=== PATIENT | male | born 1950 | race Caucasian/White ===

== ENCOUNTER 2017-03-21 16:18 | Inpatient (IN) | payer MEDICARE, OTHER ==
[2017-03-21] VITALS (10 sets, daily range): BP systolic 101–144; BP diastolic 55–81; PULSE 47–100; RESP 16–18; TEMP 97.3–98.2; O2SAT 93–98
[2017-03-21] MEDS ORDERED: DILTIAZEM HCL 25 MG/5 ML VIAL IVP ONE (17:00)
[2017-03-21] MEDS ORDERED: DILTIAZEM INJ 125 MG in SODIUM CHLORIDE 0.9% INJ 100 ML IV SCH (17:00)
[2017-03-21] MEDS ORDERED: ATOR20TA15 PO (17:05)
[2017-03-21] MEDS ORDERED: AMIO200T PO (17:05)
[2017-03-21] MEDS ORDERED: ZOLP5TAB3 PO (17:05)
[2017-03-21] MEDS ORDERED: LISI-519 PO (17:05)
[2017-03-21] MEDS ORDERED: METF1000 PO (17:05)
[2017-03-21] MEDS ORDERED: FURO40TA PO (17:05)
[2017-03-21] MEDS ORDERED: XARE20TA PO (17:05)
[2017-03-21 19:09] LABS: AUTOMATED NEUTROPHIL # 6.3 TH/MM3 (1.8-7.7); BASOPHIL # 0.1 TH/MM3 (0-0.2); BASOPHIL % 0.8 % (0.0-2.0); EOSINOPHIL # 0.1 TH/MM3 (0-0.4); EOSINOPHIL % 1.2 % (0.0-4.0); HEMATOCRIT 43.7 % (39.0-51.0); HEMO FLAGS DIFF FINAL; LYMPH % 32.2 % (9.0-44.0); LYMPHOCYTE # 3.5 TH/MM3 (1.0-4.8); MEAN CELL VOLUME 93.6 FL (80.0-100.0); MEAN CORPUSCULAR HEMOGLOBIN 31.4 PG (27.0-34.0); MEAN CORPUSCULAR HGB CONC 33.5 % (32.0-36.0); MONO % 6.8 % (0.0-8.0); PLATELET COUNT 258 TH/MM3 (150-450); RED BLOOD COUNT 4.66 MIL/MM3 (4.50-5.90); RED CELL DISTRIBUTION WIDTH 13.4 % (11.6-17.2); WHITE BLOOD COUNT 10.8 TH/MM3 (4.0-11.0)
[2017-03-21 19:17] LABS: APTT (PATIENT) 28.7 SEC (24.3-30.1); PROTHROMBIN TIME - PATIENT 11.5 SEC (9.8-11.6)
[2017-03-21 19:34] LABS: ALKALINE PHOSPHATASE 80 U/L (45-117); ALT (GPT) 25 U/L (12-78); ANION GAP 9 MEQ/L (5-15); AST (GOT) 15 U/L (15-37); BICARBONATE 27.4 MEQ/L (21.0-32.0); BLOOD UREA NITROGEN 19 MG/DL (7-18); CHLORIDE 103 MEQ/L (98-107); GLOMERULAR FILTRATION RATE 72 ML/MIN (>89); POTASSIUM 3.4 MEQ/L (3.5-5.1); SODIUM (NA) 139 MEQ/L (136-145); TOTAL BILIRUBIN ADULT 0.3 MG/DL (0.2-1.0)
[2017-03-22] VITALS (13 sets, daily range): BP systolic 104–122; BP diastolic 57–76; PULSE 51–63; RESP 18; TEMP 97.3–97.8; O2SAT 93–96
[2017-03-22] MEDS ORDERED: AMIODARONE 200 MG TAB PO SCH (09:45)
[2017-03-22] MEDS ORDERED: FUROSEMIDE 40 MG TAB PO SCH (09:45)
[2017-03-22] MEDS ORDERED: metFORMIN HCL 500 MG TAB PO SCH (09:45)
[2017-03-22] MEDS ORDERED: LISINOPRIL 5 MG TAB PO SCH (09:45)
[2017-03-22] MEDS ORDERED: ZOLPIDEM TARTRATE 5 MG TAB PO PRN (09:45)
[2017-03-22] MEDS ORDERED: PILL SPLITTER OTHER PRN (10:15)
--- NOTE | 2017-03-22 12:29 | HHI.PR ---
Subjective Remarks feeling better Objective Vital Signs Date Time Temp Pulse Resp B/P Pulse Ox O2 Delivery O2 Flow Rate FiO2 03/22/17 08:00 97.7 58 18 121/66 96 03/22/17 07:00 55 03/22/17 06:00 55 03/22/17 05:00 60 03/22/17 04:00 60 03/22/17 03:00 51 03/22/17 03:00 97.8 57 18 104/57 93 03/22/17 02:06 63 03/22/17 01:00 57 03/22/17 00:00 56 03/21/17 23:00 64 03/21/17 23:00 98.2 63 18 101/55 93 03/21/17 22:00 62 03/21/17 21:00 68 03/21/17 20:00 74 03/21/17 19:00 72 03/21/17 19:00 97.8 47 18 144/76 96 03/21/17 18:37 68 03/21/17 18:22 88 03/21/17 18:15 115/81 03/21/17 17:07 97.3 79 16 121/70 98 03/21/17 17:00 100 I/O 03/21/17 03/21/17 03/21/17 03/22/17 03/22/17 03/22/17 06:59 14:59 22:59 06:59 14:59 22:59 Intake Total 286 ml Balance 286 ml Intake Oral 240 ml IV Total 46 ml # Voids 1 2 Result Diagram: 03/21/17190003/21/171900 Imaging Alert, fully oriented Lungs: ventilated Heart: S1, S2 regular Abdomen: soft, no mass Ext: no edema Current Medications Medications (Trade) Dose Ordered Sig/Nilam Route Start Time Stop Time Status Last Admin (Cardizem Inj/NS Inj) 125 ml @ 0 mls/hr TITRATE IV 03/21/17 17:00 03/21/17 17:49 (Cordarone) 200 mg DAILY PO 03/22/17 09:45 03/22/17 10:50 (Lipitor) 20 mg HS PO 03/22/17 21:00 (Lasix) 60 mg DAILY PO 03/22/17 09:45 03/22/17 10:50 (Prinivil) 5 mg DAILY PO 03/22/17 09:45 03/22/17 10:49 (Glucophage) 1,000 mg BIDPC PO 03/22/17 09:45 03/22/17 10:50 (Xarelto) 20 mg DAILY PO 03/22/17 18:00 (Ambien) 5 mg HS PRN PO 03/22/17 09:45 (Pill Splitter) 1 ea UNSCH PRN OTHER 03/22/17 10:15 Assessment and Plan Problem List: (1) Atrial fibrillation Status: Acute Plan: Back into sinus rhythm. Doing well. On anticoagulation Cardizem PO added Can be DH OP ablation scheduled (2) Palpitations Status: Acute Plan: Doing better Theodore Mock MD March 22, 2017 12:29
[2017-03-22] MEDS ORDERED: DILTIAZEM-CD 180 MG CAP ER PO SCH (12:30)
[2017-03-22] MEDS ORDERED: CARD180C5 PO (12:31)
--- NOTE | 2017-03-22 17:25 | EKG ---
Date Performed: 03/21/2017 Time Performed: 18:07:26 PTAGE: 66 years EKG: Atrial flutter. Poor R wave progression - probable normal variant Inferior ST elevation, CO NSIDER ACUTE INFARCT, most likely secondary to flutter waves Abnormal ECG NO PREVIOUS TRACING DOCTOR: Braulio Lainez Interpretating Date/Time 03/22/2017 17:23:45
[2017-03-22] MEDS ORDERED: RIVAROXABAN 20 MG TAB PO SCH (18:00)
[2017-03-22] MEDS ORDERED: ATORVASTATIN 20 MG TAB PO SCH (21:00)
== END 2017-03-22 13:44 | disposition home or self-care (01) | DRG 310 ==
LOC: HCIN 16:18
PROVIDERS: ADMIT Internal Medicine Interventional Cardiology; ATTEND Internal Medicine Interventional Cardiology
DX: I48.91 Unspecified atrial fibrillation (principal)
CPT/HCPCS: 80053; 85025; 85610; 85730; 93005

== ENCOUNTER 2017-04-23 05:53 | Day surgery (SDC) | payer MEDICARE, OTHER ==
[~2017-04-23] VITALS: Ht 177.8 cm; Wt 87.0 kg
[2017-04-23] VITALS (13 sets, daily range): BP systolic 122–143; BP diastolic 76–85; PULSE 63–109; RESP 18–20; TEMP 97.7–98.1; O2SAT 96–99
[~2017-04-23 05:53] MED LIST: AMIO200T PO; ATOR20TA15 PO; CARD180C5 PO; FURO40TA PO; LISI-519 PO; METF1000 PO; XARE20TA PO; ZOLP5TAB3 PO
[2017-04-23] MEDS ORDERED: METOPROLOL TARTRATE 25 MG TAB PO PRN (06:30)
[2017-04-23] MEDS ORDERED: CHLORHEXIDINE GLUCONATE 2 % 1 PACK (2 CLOTHS) TOPICAL PRN (06:30)
[2017-04-23] MEDS ORDERED: INSULIN HUMAN REGULAR 1,000 UNITS/10 ML VIAL SQ PRN (06:30)
[2017-04-23] MEDS ORDERED: LORazepam 1 MG TAB SL SCH (06:30)
[2017-04-23] MEDS ORDERED: SODIUM CHLORID 0.9% 500 ML IV PRN (06:30)
[2017-04-23] MEDS ORDERED: SODIUM CHLORID 0.9% 500 ML INJ 500 ML IV SCH (06:30)
[2017-04-23] MEDS ORDERED: POVIDONE IODINE 5% (ANTISEPSIS KIT) 4 APPLICATIONS EACH NARE PRN (06:30)
[2017-04-23] MEDS ORDERED: LACTATED RINGER'S 1000 ML IV PRN (06:30)
[2017-04-23 07:11] LABS: BASOPHIL % 0.3 % (0.0-2.0); EOSINOPHIL # 0.1 TH/MM3 (0-0.4); EOSINOPHIL % 1.5 % (0.0-4.0); HEMATOCRIT 44.8 % (39.0-51.0); HEMO FLAGS DIFF FINAL; LYMPH % 27.2 % (9.0-44.0); LYMPHOCYTE # 2.5 TH/MM3 (1.0-4.8); MEAN CELL VOLUME 90.7 FL (80.0-100.0); MEAN CORPUSCULAR HEMOGLOBIN 30.8 PG (27.0-34.0); MEAN CORPUSCULAR HGB CONC 33.9 % (32.0-36.0); MONO % 6.9 % (0.0-8.0); NEUT % 64.1 % (16.0-70.0); PLATELET COUNT 296 TH/MM3 (150-450); RED BLOOD COUNT 4.94 MIL/MM3 (4.50-5.90); WHITE BLOOD COUNT 9.4 TH/MM3 (4.0-11.0)
[2017-04-23 07:16] LABS: APTT (PATIENT) 29.3 SEC (24.3-30.1); PROTHROMBIN TIME - PATIENT 11.3 SEC (9.8-11.6)
[2017-04-23] MEDS ORDERED: LEVOFLOXACIN 500 MG PREMIX INJ 100 ML IV ONE (07:30)
[2017-04-23] MEDS ORDERED: ISOPROTERENOL HCL 1 MG/5 ML AMP ONE (07:31)
[2017-04-23 07:32] LABS: BICARBONATE 29.7 MEQ/L (21.0-32.0); POTASSIUM 3.5 MEQ/L (3.5-5.1)
[2017-04-23] MEDS ORDERED: MIDAZOLAM HCL 2 MG/2 ML VIAL ONE (07:32)
[2017-04-23] MEDS ORDERED: fentaNYL CITRATE 250 MCG/5 ML AMP ONE (07:32)
[2017-04-23] MEDS ORDERED: HEPARIN-D5W INJ 250 ML ONE (07:32)
[2017-04-23] MEDS ORDERED: HEPARIN SODIUM - IV 10,000 UNITS/10 ML VIAL ONE ×2 (07:33→08:54)
[2017-04-23] MEDS ORDERED: PROTAMINE SULFATE 50 MG/5 ML VIAL ONE (07:33)
[2017-04-23] MEDS ORDERED: ASPI81CH CHEW (07:53)
[2017-04-23] MEDS ORDERED: DULA10IN SQ (07:53)
[2017-04-23] MEDS ORDERED: FUROSEMIDE 40 MG/4 ML VIAL ONE (09:40)
--- NOTE | 2017-04-23 09:43 | CATHPROC ---
[employer] HIS Report Study Information Study Number Admission Scheduled Start Study Start [id number] 04/23/2017 04/23/2017 Apr 23 2017 6:44AM Referring Institution Admit Source Facility Department 1 Other [facility] - Call Center Agent Physician and Clinical Staff Initial Theodore Vigil Electrician Constructor Supervisor Indio Cisse,RT(R) Electrician Constructor Supervisor Nikkie Gama RCIS Other Chan Ayala,RN Other Anesthesia, CREATIVE LEAD Recorder Ijeoma Carrington,BSRN Scrub Marcus Carrintgon,RT(R) TECH2 Procedures Performed Procedure Ablation Procedure Equipment Time Pharmacoepidemiologist Description Size Mfg Part Number Used/Scraped NEEDLE, TRANSSEPTAL NRG 98 06:47 [facility] [id number] Used C1 [employer]/ EP 06:47 KIT, TRANSDUCER / AFIB [id number] Used PACER [id number] CATHETER, TACTICATH ABLAT BUNDLE 06:47 [facility] Used 65 BUNDLE *[id number]- BUNDLE [id number] CATHETER, FR7 OPTIMA SPIRAL 06:47 [facility] FR7 *[id number]- Used BUNDLE BUNDLE [id number] 06:47 [facility] CATHETER, JSN, QUAD BUNDLE FR 5 *[id number]- Used BUNDLE [id number] 06:47 [facility] CATHETER, JSN, QUAD BUNDLE FR 5 *[id number]- Used BUNDLE [id number] SET, COOL POINT TUBING 06:47 [facility]UND[facility] *[id number]- Used BUNDLE BUNDLE SHEATH, FR8.5 STEERABLE SM 06:47 [facility] 71CM [id number] Used 71CM BUNDLE COVER, TRANSDUCER CABLE 06:47 [employer] 612-113 Used ACUNAV COVER, TRANSDUCER CABLE 08:27 [employer] 612-113 Used ACUNAV 06:47 CORDIS/PACER SHEATH, FR10 MASOUD 11CM FR 10 [id number] Used 06:47 CORDIS/PACER SHEATH, FR9 MASOUD 11CM FR 9 [id number] Used [id number] 06:47 [employer] PACK, CCL CUSTOM * Used *[id number] 06:47 MEDLINE PACER BERNARDO, LIMB * 5320 *[id number] Used [id number] 06:47 [employer] MEDICAL SHEATH, FR4.5 PRELUDE 11CM FR 4.5 Used [id number] 06:47 NAMIC TUBING, HIGH PRESSURE 48" 48" Used *[id number] 06:47 NAMIC TUBING, HIGH PRESSURE 48" 48" Used *[id number] 06:47 [employer] BLANKET,WARM AIR CCL * Used *[id number] 06:47 [facility] MEDICAL ELECTRODE KIT, TREMAINE X SURFACE * [id number] Used 06:47 [facility] MEDICAL SHEATH, EPS, FR6 FAST CATH FR [address] [id number] Used 06:47 [facility] MEDICAL SHEATH, EPS, FR7 FAST CATH FR [id number] Used 06:47 [facility] MEDICAL SHEATH, EPS, FR8 FAST CATH FR 8 [id number] Used [facility] PAD, ELECTROSURGICAL 06:47 * [id number] *[id number] Used SURGICAL GROUNDING (BLUE) History: Current Medications Medication Dosage/Unit Route Frequency Last Date/Time Taken ASA Statins (any) Glucophage XARELTO History: Allergies Allergy Reaction NKDA History: Risk Factors Hypertension Dyslipidemia Previous [place] Previous Heart Failure Yes Yes Yes Yes Prior Valve Prior PCI Prior CABG Surgery No Yes No Cerebrovascular Peripheral Artery Chronic Lung On Dialysis Diabetes Diabetes Therapy Disease Disease Disease No No No Yes Yes Oral History: Risk Factors Selection Items Diabetes Previous WA (>7 days) Previous Cardiovascular Treatment Chronic Lung Disease on therapy History: Symptoms/Diagnosis Selection Items AMARAL SOB History: CV Disease Selection Items Known CAD [place] History: Arrhythmias Selection Items Atrial fibrillation History: Other Disease Selection Items CAD Cancer COPD HTN Labs Hgb (g/dl) Hct (%) RBC (MIL/MM3) WBC (l/cumm) Platelets (thousands) 11.60-17.00 35.00-51.00 4.00-5.90 4.00-11.00 150.00-450.00 15.2 44.8 4.9 9.4 296 Glucose (mg/dl) BUN (mg/dl) Creatinine (mg/dl) BUN:Creatinine (1:x) 74.00-106.00 7.00-18.00 0.50-1.30 10.00-20.00 114 23 0.9 25.6 Na (meq/l) K (meq/l) Cl (meq/l) CO2 (mmol/L) Ca (mg/dl) 136.00-145.00 3.50-5.10 98.00-107.00 21.00-32.00 8.50-10.10 140 3.5 102 29.7 9.1 INR (PTT:PT) 0.90-1.10 1 Medication Medication Total Dose (Bolus/Oral) Medication Total Dosage/Unit 1% XYLOCAINE 40 mL HEPARIN 46262 units LASIX 40 mg PROTAMINE 40 mg Medications (Bolus/Oral) Medication Time Given Dosage/Unit Administered By Reason 1% XYLOCAINE 04/23/2017 8:23:06 AM 20 mL Theodore Mock For pain 20 mL 1% XYLOCAINE given in lab by Theodore Mock in Left Groin via Subcutaneous. Ordered by [place] Mock. Reason: For pain. 1% XYLOCAINE 04/23/2017 8:27:39 AM 20 mL Theodore Mock For pain 20 mL 1% XYLOCAINE given in lab by Theodore Mock in Right Groin via Subcutaneous. Ordered by Bhavin Mock. Reason: For pain. HEPARIN 04/23/2017 8:37:06 AM 58744 units Anesthesia, CREATIVE LEAD As per physicians v erbal order 04982 units HEPARIN given in lab by Anesthesia, CREATIVE LEAD in Right Hand via Peripheral IV. Ordered by Theodore Andrews. Reason: As per physicians verbal order. HEPARIN 04/23/2017 8:53:40 AM 2000 units Anesthesia, CREATIVE LEAD As per physicians v erbal order 2000 units HEPARIN given in lab by Anesthesia, CREATIVE LEAD in Right Hand via Peripheral IV. Ordered by Theodore Mock. Reason: As per physicians verbal order. HEPARIN 04/23/2017 9:07:36 AM 2000 units Anesthesia, CREATIVE LEAD As per physicians v erbal order 2000 units HEPARIN given in lab by Anesthesia, CREATIVE LEAD in Right Hand via Peripheral IV. Ordered by Theodore Mock. Reason: As per physicians verbal order. LASIX 04/23/2017 9:39:49 AM 40 mg Anesthesia, CREATIVE LEAD As per physicians verb al order 40 mg LASIX given in lab by Anesthesia, CREATIVE LEAD in Right Hand via Peripheral IV. Ordered by Iris Mock Reason: As per physicians verbal order. PROTAMINE 04/23/2017 9:40:11 AM 40 mg Anesthesia, CREATIVE LEAD As per physicians ve rbal order 40 mg PROTAMINE given in lab by Anesthesia, CREATIVE LEAD in Right Hand via Peripheral IV. Ordered by Bhavin Mock. Reason: As per physicians verbal order. Medication (Drip) Medication Time Given Dosage/Unit Concentration/Unit Diluent (ml) Solution HEPARIN DRIP 04/23/2017 8:54:29 AM 1000 units/hr 16631 units 250 D5W 1000 units/hr HEPARIN DRIP given in lab by Anesthesia, CREATIVE LEAD in Right Hand via Peripheral IV. Pump/Dri p Flow = 10 ml/hr [place] [address] units in 250 ml. Ordered by Theodore Mock. Reason: As per physicians verbal or joelle. ISUPREL 04/23/2017 9:20:52 AM 20 mcg/min 1 mg 250 NaCl .9 20 mcg/min ISUPREL given in lab by Anesthesia, CREATIVE LEAD in Right Hand via Peripheral IV. Pump/Drip Flow = 300 ml/hr using NaCl .9 with a concentration of 1 mg in 250 ml. Ordered by Theodore Mock. Reason: As per physicians verbal order. Initial Case Assessment Cardiovascular HR NIBP 85 148/81 Edema Present Skin color Skin None Normal Warm Dry Neurological State Oriented to time-place- Alert Moves all extremities person Respiration - General Respiration Rate SpO2 (%) (B/min) 18 96 Chronological Log Time Study Chronological Log 7:14:00 Patient Name, D.O.B, / Armband Verified By R.N. 7:15:00 Patient arrived via Bed. Anesthesia at bedside. Assumes care of patient. See anesthesia flow sheet for ALL vital signs a nd medications given in 7:15:10 case. 7:38:35 Patient has been NPO for More than 6Hrs. 7:38:37 Skin Breakdown-none per pt 7:38:44 Patient Warmer Placed on the Table. 7:38:45 Disposable Defibrillator Pads Placed On Patient. 7:38:46 Suzette Prominences Protected 7:38:51 Table restraints applied according to hospital policy 7:40:00 Verbal Stimulation=2 Physical Stimulation=2 Airway=2 Respiration=2 TOTAL=10. (0=absent, 1=l imited, 2=present) Assessment: Initial Case, HR=85 BPM, JWEO=209/81 mmhg, Edema=None, Color=Normal, Skin = Warm, D ry 7:53:55 Neurological: State=Alert, Ox3, FOFANA Respiration: Resp=18 B/min, SpO2=96 % 8:11:46 MD paged 8:11:49 MD responded 8:15:00 Immediate Presedation assesment performed by physician. 8:15:30 MD arrived. Time Out. Correct patient, procedure, procedure equipment, site and side verified with physicia n present. Time 8:16:00 concurred by MD, individual staff and CREATIVE LEAD. Time Out #2 - Consents verified, patient in correct position, all results are labled and displa yed, safety precautions 8:16:30 taken, antibiotics administered. Time out concurred by MD, individual staff and CREATIVE LEAD in procedu re 8:16:40 Case Start 8:20:00 IRAM begun. 8:22:00 IRAM completed 20 mL 1% XYLOCAINE given in lab by Theodore Mock in Left Groin via Subcutaneous. Ordered by Theodore Nicholas. 8:23:06 Reason: For pain. 8:23:50 Vascular access was obtained in the Fem Vein (left). 8:23:58 Vascular access was obtained in the Fem Vein (left). 8:23:59 Vascular access was obtained in the Fem Vein (left). 8:24:10 Vascular access was obtained in the Fem Art (left). 8:24:30 A SHEATH, FR4.5 PRELUDE 11CM FR 4.5 was advanced into the Fem Art (left) using the Percutane ous technique. 8:24:46 A SHEATH, EPS, FR6 FAST CATH FR 6 was advanced into the Fem Vein (left) using the Percutaneo us technique. 8:24:59 A SHEATH, EPS, FR7 FAST CATH FR 7 was advanced into the Fem Vein (left) using the Percutaneo us technique. 8:25:12 A SHEATH, FR10 MASOUD 11CM FR 10 was advanced into the Fem Vein (left) using the Percutaneou s technique. 20 mL 1% XYLOCAINE given in lab by Theodore Mock in Right Groin via Subcutaneous. Ordered by Theodore Nicholas. 8:27:39 Reason: For pain. 8:28:03 Vascular access was obtained in the Fem Vein (right). 8:28:09 A SHEATH, EPS, FR8 FAST CATH FR 8 was advanced into the Fem Vein (right) using the Percutane ous technique. A CATHETER, JSN, QUAD BUNDLE FR 5 was advanced vis Fem Vein (left) and placed in the CS. Placeme nt was visually 8:30:17 confirmed under fluoroscopy. A CATHETER, JSN, QUAD BUNDLE FR 5 was advanced vis Fem Vein (left) and placed in the HIS. Placem ent was 8:30:46 visually confirmed under fluoroscopy. A SHEATH, FR8.5 STEERABLE SM 71CM BUNDLE 71CM was exchanged in the Fem Vein (right). This was ne cessary in 8:32:39 order for catheter support. 8:36:27 [place] needle inserted into Agilis sheath. 27766 units HEPARIN given in lab by Anesthesia, CREATIVE LEAD in Right Hand via Peripheral IV. Ordered by Theodore Mock. 8:37:06 Reason: As per physicians verbal order. A CATHETER, FR7 OPTIMA SPIRAL BUNDLE FR7 was advanced to the right atrium and passed through the septal wall 8:37:40 to the left atrium. 8:40:06 Mapping in progress. 8:46:00 Mapping complete. 8:47:50 Activated Clotting Time Drawn 8:50:32 Catheter was removed A CATHETER, TACTICATH ABLAT 65 BUNDLE was advanced vis Fem Vein (right) and placed in the LA. Pl acement was 8:50:46 visually confirmed under fluoroscopy. 8:51:29 ACT (Normal Range 90-180) = 314 8:52:00 Ablation in progress of pulmonary veins. 2000 units HEPARIN given in lab by Anesthesia, CREATIVE LEAD in Right Hand via Peripheral IV. Ordered by Theodore Mock. 8:53:40 Reason: As per physicians verbal order. 1000 units/hr HEPARIN DRIP given in lab by Anesthesia, CREATIVE LEAD in Right Hand via Peripheral IV. Pum p/Drip Flow = 10 8:54:29 ml/hr [place] [address] units in 250 ml. Ordered by Theodore Mock. [place] son: As per physicians verbal order. 9:01:25 Activated Clotting Time Drawn 9:06:49 ACT (Normal Range 90-180) = 338 2000 units HEPARIN given in lab by Anesthesia, CREATIVE LEAD in Right Hand via Peripheral IV. Ordered by Theodore Mock. 9:07:36 Reason: As per physicians verbal order. 9:16:45 Tacticath ablation catheter removed. [place] Spiral catheter inserted. 9:17:31 Activated Clotting Time Drawn 9:19:33 [place] catheter removed. Ablation catheter reinserted. 9:20:10 Ablation continues. 9:20:32 Ablation completed. 20 mcg/min ISUPREL given in lab by Anesthesia, CREATIVE LEAD in Right Hand via Peripheral IV. Pump/Drip F low = 300 ml/hr 9:20:52 using NaCl .9 with a concentration of 1 mg in 250 ml. Ordered by Theodore Mock. Reason: As p er physicians verbal order. 9:22:34 ACT (Normal Range 90-180) = 378 9:30:49 Stop Isuprel gtt. 9:31:00 Heparin gtt off 9:33:24 Catheters removed 9:34:28 Sheaths to be pulled in PACU 9:35:10 Ablation procedure performed: AFIB. 9:35:23 EP Procedure was performed. 40 mg LASIX given in lab by Anesthesia, CREATIVE LEAD in Right Hand via Peripheral IV. Ordered by Theodore Mock. Reason: As 9:39:49 per physicians verbal order. 40 mg PROTAMINE given in lab by Anesthesia, CREATIVE LEAD in Right Hand via Peripheral IV. Ordered by Theodore Rivas. 9:40:11 Reason: As per physicians verbal order. 9:42:00 PACU called. Spoke to Thuy 9:50:00 Activated Clotting Time Drawn 9:53:00 ACT (Normal Range 90-180) = 171 9:54:37 Case End 9:54:54 [facility] to [facility] and transported to PACU in stable condition. End Study - Contrast Media Used In Study Contrast Total Opened (mL) Total Used (mL) Total Wasted (mL) Unspecified 0 0 0 End Study - Maximum Contrast Load Max Contrast Load (mL) 478.8 End Study - Radiation Exposure Fluoro Time (minutes) 0.7 End Study - Patient Disposition Complications Transferred To Interventional Outcome No Telemetry Bed successful
--- NOTE | 2017-04-23 09:53 | PD.CARD ---
Atrial Fibrillation Ablation PROCEDURE DATE: Apr 23, 2017 PROCEDURES PERFORMED: 1. Electrophysiology study on Isuprel infusion 2. CS cannulation 3. 3-D mapping 4. Transseptal approach 5. Right and left heart catheterization 6. Intracardiac echo 7. Radiofrequency ablation of atrial fibrillation 8. Pulmonary vein isolation 9. Posterior wall ablation 10. Mitral line creation 11. Anterior wall ablation 12. Repeat electrophysiology study on isuprel infusion. INDICATIONS FOR THE PROCEDURE Mr. Fernandez is a 66-year-old male with atrial fibrillation very symptomatic, multiple episodes, on multiple medications, on anticoagulation admitted for electrophysiology study and ablation. The risks, the nature and the benefits of the procedure were clearly stated to him. The risks include pneumothorax, cardiac perforation, stroke, need for open heart surgery and even . The patient understood and agreed to proceed. DESCRIPTION OF THE PROCEDURE IN DETAIL As written informed consent was obtained prior to esophageal echocardiogram, the patient was kept on the table where he was prepped and draped in the usual sterile fashion. Conscious sedation was initiated and maintained throughout the procedure by the anesthesiologist. Once sedation was verified, the right and left inguinal areas were anesthetized with 2% Xylocaine. Using modified Seldinger technique, the left femoral vein was cannulated on three occasions, three guidewires were advanced. Over the wire a 6, 7 and a 10-Sudanese Hemaquet were advanced. Then the left femoral artery was cannulated on one occasion, one guidewire was advanced. Over the wire a 4-Sudanese Hemaquet was advanced. Then the right femoral vein was cannulated on one occasion, one guidewire was advanced. Over the wire a 8-Sudanese Hemaquet was advanced. Then under fluoroscopic guidance through the 6 and 7-Sudanese Hemaquet, two 5-Sudanese Jerry curved quadripolar electrophysiology catheters were advanced and placed around the His as well as coronary sinus. Basic interval was measured. The patient was in sinus rhythm. Through the 10-Sudanese Hemaquet, a Cordis [place] AcuNav intracardiac echo catheter was advanced and placed at the right atrium. Multiple view was obtained. There is pericardial effusion, pulmonary vein was seen, atrial septal was visualized. Then the 8-Sudanese Hemaquet in the right femoral vein was exchanged for Agilis transseptal sheath that was placed all the way to the superior vena cava. Through the sheath a [place] needle was advanced, then the sheath, the dilator and the needle were progressed until foci engaged. Once engaged, the needle was advanced. RF was delivered for 2 seconds. I was able to cross into the left atrium. Once the needle crossed, the dilator was advanced. Once the dilator crossed, the sheath was advanced. Once the sheath crossed, the dilator and the needle were removed. At this point I did flood the system and fluid movement was seen in the left atrium the indicates the sheath is in good position. The patient already received 10,000 units of heparin. The goal is to keep an ACT around 350 during ablation. Then through the sheath a [place] 20 pulse circumferential catheter was advanced. Using Fonix endocardial solution mapping system, a 3-dimensional configuration of the left atrium was obtained. Points were taken at the left superior and inferior veins, right superior and inferior veins, mitral valve, and appendages. Then through the sheath a [place] TactiCath 65cm 3.5mm irrigated tipped mapping and radiofrequency ablation catheter was advanced. Esophageal probe was placed temperature monitoring during ablation. When it increased to 0.5 degrees Celsius above baseline, I moved to a different area of the atrium. First I did isolate the left superior and inferior vein. I did make a [place] around the veins. Posterior was ablated. A mitral valve line was created.- Then the right superior and inferior veins were isolated. I did remap the atrium. There was no signal into the vein, pacing from the vein showed no conduction to the atrium. Isuprel infusion was initiated at 20 mcg for over 10 minutes. No tachyarrhythmia was induced, post Isuprel no tachyarrhythmia was induced. At that point the procedure was complete. All catheters were removed , atrial septal sheath was exchanged for 9-Sudanese Hemaquet, intracardiac echo showed no pericardial effusion. There is still good flow in the pulmonary vein. The patient is going to be transferred to the recovery room. No incident report. The patient tolerated the procedure. Blood loss was minimal. FINDINGS 1. Electrocardiogram: At baseline the patient was in sinus, post procedure electrocardiogram was unchanged. 2. Basic interval: Base cycle length was around 840. AH at 106 and HV at 54 milliseconds. 3. Tachyarrhythmia: Atrial fibrillation was mapped and ablated. The ablation was successful. CONCLUSION Successful electrophysiology study, mapping, radiofrequency ablation of atrial fibrillation, pulmonary vein isolation, posterior ablation, mitral line creation , roof line creation, repeat electrophysiology on isuprel; infusion. COMMENTS AND RECOMMENDATIONS The patient is going to be transferred to the telemetry unit. Will be observed and when stable can be discharged home. Theodore Mock MD Apr 23, 2017 09:53
[2017-04-23] MEDS ORDERED: BACITRACIN OINT 0.9 GM PKT TOP ONE (10:00)
[2017-04-23] MEDS ORDERED: METOCLOPRAMIDE HCL 10 MG/2 ML VIAL IV PRN (10:00)
[2017-04-23] MEDS ORDERED: oxyCODONE/ACETAMINOPHEN 5 MG/325 MG TAB PO PRN ×2 (10:00)
[2017-04-23] MEDS ORDERED: ONDANSETRON HCL 4 MG/2 ML VIAL IV PRN (10:00)
[2017-04-23] MEDS ORDERED: ATROPINE SULFATE 1 MG/ML VIAL IV PRN (10:00)
[2017-04-23] MEDS ORDERED: ZOLPIDEM TARTRATE 5 MG TAB PO PRN (10:00)
[2017-04-23] MEDS ORDERED: LORazepam 2 MG/ML VIAL IV PRN (10:00)
[2017-04-23] MEDS ORDERED: LIDOCAINE HCL 1% 50 ML VIAL INFIL PRN (10:00)
[2017-04-23] MEDS ORDERED: SODIUM CHLOR 0.9% 250 ML INJ 250 ML IV PRN (10:00)
[2017-04-23] MEDS ORDERED: DO NOT ADM ANY ANTICOAGULANT DRUGS PRN (10:15)
[2017-04-23] MEDS ORDERED: PROPOFOL 200 MG/20 ML AMP IV ONE (14:20)
[2017-04-23] MEDS: metFORMIN HCL 500 MG TAB PO SCH (17:54)
[2017-04-23] MEDS: RIVAROXABAN 20 MG TAB PO SCH (17:55)
[2017-04-23] MEDS ORDERED: ATORVASTATIN 20 MG TAB PO SCH (21:00)
[2017-04-24] VITALS (10 sets, daily range): BP systolic 119–132; BP diastolic 71–78; PULSE 76–80; RESP 20; TEMP 98–98.1; O2SAT 96–99
--- NOTE | 2017-04-24 07:36 | EKG ---
Date Performed: 04/23/2017 Time Performed: 10:30:21 PTAGE: 66 years EKG: Sinus rhythm PROLONGED QT INTERVAL ABNORMAL ECG PREVIOUS TRACING : 04/23/2017 07.02 DOCTOR: Theodore Mock Interpretating Date/Time 04/24/2017 07:36:02
[2017-04-24 07:39] LABS: APTT (PATIENT) 33.1 SEC (24.3-30.1); INTERNATIONAL NORMALIZED RATIO 1.2 RATIO; PROTHROMBIN TIME - PATIENT 13.9 SEC (9.8-11.6)
--- NOTE | 2017-04-24 07:43 | EKG ---
Date Performed: 04/23/2017 Time Performed: 07:02:32 PTAGE: 66 years EKG: Sinus rhythm with borderline 1st degree A-V block Prolonged QT interval Borderline ECG NO PREVIOUS TRACING DOCTOR: Theodore Mock Interpretating Date/Time 04/24/2017 07:41:29
--- NOTE | 2017-04-24 08:09 | PD.CARD.PN ---
Subjective Subjective Remarks Feels okay. Objective Medications Current Medications Medications (Trade) Dose Ordered Sig/Nilam Route Start Time Stop Time Status Last Admin (NS 500 ml Inj) 500 ml @ 30 mls/hr [id number] IV 04/23/17 06:30 (Percocet 5-325 Mg) 1 tab Q4H PRN PO 04/23/17 10:00 (Percocet 5-325 Mg) 2 tab Q4H PRN PO 04/23/17 10:00 (Ativan Inj) 0.5 mg UNSCH PRN IV 04/23/17 10:00 04/24/17 09:59 Atropine Sulfate 0.5 mg 0.5 mg UNSCH PRN IV 04/23/17 10:00 (NS 250 ml Inj) 250 ml @ 500 mls/hr ONCE PRN IV 04/23/17 10:00 04/24/17 09:59 (Reglan Inj) 10 mg Q4H PRN IV 04/23/17 10:00 (Zofran Inj) 4 mg Q4H PRN IV 04/23/17 10:00 (Xylocaine 1% Inj (50 ml)) 10 ml UNSCH PRN INFIL 04/23/17 10:00 04/24/17 09:59 (Lipitor) 20 mg HS PO 04/23/17 21:00 04/23/17 21:01 (Lasix) 40 mg DAILY PO 04/24/17 09:00 (Prinivil) 10 mg DAILY PO 04/24/17 09:00 (Glucophage) 1,000 mg BIDPC PO 04/23/17 18:00 04/23/17 17:54 (Xarelto) 20 mg DAILY PO 04/23/17 18:00 04/23/17 17:55 (Ambien) 5 mg HS PRN PO 04/23/17 10:00 Patient Own Medication PT OWN MED: Dulaglut... Q7D SQ 04/29/17 11:00 Future Hold Miscellaneous Information ALL NURSING DEPARTME... UNSCH PRN .XX 04/23/17 10:15 04/24/17 10:14 Vital Signs / I&O Vital Signs Date Time Temp Pulse Resp B/P Pulse Ox O2 Delivery O2 Flow Rate FiO2 04/24/17 06:00 80 04/24/17 05:00 77 04/24/17 04:00 76 04/24/17 03:00 98.0 78 20 119/71 96 04/24/17 03:00 78 04/24/17 02:00 77 04/24/17 01:00 78 04/24/17 00:00 80 04/23/17 23:00 98.1 80 18 122/85 96 04/23/17 23:00 78 04/23/17 22:00 80 04/23/17 21:00 84 04/23/17 20:00 82 04/23/17 19:00 82 04/23/17 19:00 97.9 83 20 134/77 99 04/23/17 18:00 109 04/23/17 17:00 80 04/23/17 16:00 81 04/23/17 15:00 97.7 81 20 130/76 98 04/23/17 15:00 80 04/23/17 14:07 79 04/23/17 13:00 78 04/23/17 12:00 97.7 77 18 133/76 99 04/23/17 12:00 70 04/23/17 11:10 75 20 128/71 95 Nasal Cannula 2 04/23/17 11:00 75 20 121/66 94 Nasal Cannula 2 04/23/17 10:45 75 20 136/70 97 Nasal Cannula 2 04/23/17 10:30 75 20 135/70 97 Nasal Cannula 2 04/23/17 10:15 75 20 137/75 97 Nasal Cannula 2 04/23/17 10:08 97.5 75 20 138/74 96 Nasal Cannula 2 I/O 04/23/17 04/23/17 04/23/17 04/24/17 04/24/17 04/24/17 07:00 15:00 23:00 07:00 15:00 23:00 Intake Total 730 ml 720 ml 720 ml Output Total 305 ml 1700 ml 750 ml Balance 425 ml -980 ml -30 ml Intake Oral 720 ml 720 ml IV Total 30 ml Other 700 ml Output Urine Total 300 ml 1700 ml 750 ml Estimated Blood Loss 5 ml Physical Exam GENERAL: Well-nourished, well-developed patient. SKIN: Warm and dry. Groin sites soft with no bruising or bleeding. HEAD: Normocephalic. EYES: No scleral icterus. No injection or drainage. NECK: Supple, trachea midline. No JVD or lymphadenopathy. CARDIOVASCULAR: Regular rate and rhythm without murmurs, gallops, or rubs. RESPIRATORY: Breath sounds equal bilaterally. No accessory muscle use. GASTROINTESTINAL: Abdomen soft, non-tender, nondistended. EXTREMITIES: No cyanosis, or edema. NEUROLOGICAL: Awake, alert, and oriented x 3. Non-focal. Laboratory Laboratory Tests Test 04/24/17 06:39 Prothrombin Time 13.9 SEC Prothromb Time International 1.2 RATIO Ratio Activated Partial 33.1 SEC Thromboplast Time Assessment and Plan Problem List: (1) Atrial fibrillation Assessment and Plan: NSR on telemetry status post ablation. Anticoagulated on Xarelto. (2) S/P ablation of atrial fibrillation Assessment and Plan: Groin sites soft, benign. Discharge home, follow-up with Dr. Mock in 3 weeks per my discussion with him. Discussed Condition With D/W RN, patient, Dr. Mock Problem Qualifiers (1) Atrial fibrillation: Qualified Code: I48.0 - Paroxysmal atrial fibrillation Ary Cordoba Apr 24, 2017 08:09
[2017-04-24] MEDS ORDERED: FUROSEMIDE 40 MG TAB PO SCH (09:00)
[2017-04-24] MEDS ORDERED: LISINOPRIL 5 MG TAB PO SCH (09:00)
[2017-04-24] MEDS: metFORMIN HCL 500 MG TAB PO SCH (09:12)
[2017-04-24] MEDS: RIVAROXABAN 20 MG TAB PO SCH (09:13)
--- NOTE | 2017-04-24 17:20 | EKG ---
Date Performed: 04/24/2017 Time Performed: 06:04:46 PTAGE: 66 years EKG: Sinus rhythm with borderline 1st degree A-V block Prolonged QT interval Borderline ECG PREVIOUS TRACING : 04/23/2017 10.30 Compared to prior tracing no significant change DOCTOR: Shay Nguyen Interpretating Date/Time 04/24/2017 17:19:02
--- NOTE | 2017-04-25 22:51 | ECHRPT ---
Indication: CONCLUSIONS Adequate left ventricuilar sytolic function. EF 60% Mild left atrial enlargement. No clot seen at left atrium, nor left atrium appendage. Trivial mitral regurgitation BP: / HR: Rhythm: Technical Quality: Medications Complications Proc. Components FINDINGS LEFT VENTRICLE Normal left ventricular size and wall thickness. The left ventricular systolic function is normal wi th an estimated ejection fraction in the range of 60%. Left ventricular diastolic function parameters are normal. RIGHT VENTRICLE Normal right ventricular size and systolic function. LEFT ATRIUM The left atrial size is mildly enlarge. RIGHT ATRIUM The right atrial size is normal. ATRIAL APPENDAGES No clot seen. Adequate emptying ATRIAL SEPTUM Normal atrial septal thickness without atrial level shunting by limited color doppler interrogation. AORTA The aortic root and proximal ascending aorta are normal in size on limited imaging. MITRAL VALVE Structurally normal mitral valve. No mitral valve stenosis or regurgitation. AORTIC VALVE Trileaflet aortic valve. Mildly sclerotic and calcified with adequate opening VESSELS The inferior vena cava is normal in size. PULMONARY VALVE The pulmonary valve is not well visualized. PERICADIUM No pericardial effusion. Theodore Mock MD (Electronically Signed) Final Date:25 April 2017 22:51
[2017-04-29] MEDS ORDERED: PATIENT OWN MEDICATION SQ SCH (11:00)
== END 2017-04-24 10:11 | disposition home or self-care (01) ==
LOC: HDOC 05:53 → HDIC 05:54 → HCIS 11:43 → HDOC 04-24 10:11
PROVIDERS: ATTEND Internal Medicine Interventional Cardiology
DX: I48.0 Paroxysmal atrial fibrillation (principal); I45.81 Long QT syndrome; R94.31 Abnormal electrocardiogram [ECG] [EKG]
CPT/HCPCS: 80048; 85002; 85025; 85610; 85730; 86850; 86900; 86901; 93005; 93312; 93320; 93325; 93613; 93623; 93656; 93662; C1730; C1731; C1732; C1759; C1766; C2630; J1644; J1940; J1956; J2250; J2720; J3010

== ENCOUNTER 2017-12-24 06:58 | Day surgery (SDC) | payer MEDICARE, OTHER ==
[2017-12-24] VITALS (10 sets, daily range): BP systolic 120–143; BP diastolic 70–89; PULSE 76–92; RESP 18; TEMP 97.7–98.1; O2SAT 95–98
[~2017-12-24] VITALS: Ht 177.8 cm; Wt 86.0 kg
[~2017-12-24 06:58] MED LIST changes: +ASPI-516 CHEW; -CARD180C5 PO; +DULA10IN SQ
[2017-12-24 07:50] LABS: AUTOMATED NEUTROPHIL # 6.6 TH/MM3 (1.8-7.7); BASOPHIL % 0.3 % (0.0-2.0); EOSINOPHIL # 0.2 TH/MM3 (0-0.4); EOSINOPHIL % 1.9 % (0.0-4.0); HEMATOCRIT 41.1 % (39.0-51.0); HEMOGLOBIN 13.7 GM/DL (13.0-17.0); LYMPHOCYTE # 2.6 TH/MM3 (1.0-4.8); MEAN CELL VOLUME 93.3 FL (80.0-100.0); MEAN CORPUSCULAR HEMOGLOBIN 31.2 PG (27.0-34.0); MEAN CORPUSCULAR HGB CONC 33.5 % (32.0-36.0); MEAN PLATELET VOLUME 7.7 FL (7.0-11.0); MONO % 5.9 % (0.0-8.0); MONOCYTE # 0.6 TH/MM3 (0-0.9); NEUT % 65.9 % (16.0-70.0); PLATELET COUNT 344 TH/MM3 (150-450); RED CELL DISTRIBUTION WIDTH 14.6 % (11.6-17.2)
[2017-12-24 08:00] LABS: PROTHROMBIN TIME - PATIENT 10.5 SEC (9.8-11.6)
[2017-12-24 08:09] LABS: BICARBONATE 29.2 MEQ/L (21.0-32.0); CALCIUM 8.9 MG/DL (8.5-10.1); CREATININE 0.76 MG/DL (0.60-1.30)
[2017-12-24] MEDS ORDERED: LORazepam 1 MG TAB SL SCH (08:15)
[2017-12-24] MEDS ORDERED: CHLORHEXIDINE GLUCONATE 2 % 1 PACK (2 CLOTHS) TOPICAL PRN (08:15)
[2017-12-24] MEDS ORDERED: INSULIN HUMAN REGULAR 1,000 UNITS/10 ML VIAL SQ PRN (08:15)
[2017-12-24] MEDS ORDERED: SODIUM CHLORID 0.9% 500 ML IV PRN (08:15)
[2017-12-24] MEDS ORDERED: POVIDONE IODINE 5% (ANTISEPSIS KIT) 4 APPLICATIONS EACH NARE PRN (08:15)
[2017-12-24] MEDS ORDERED: LACTATED RINGER'S 1000 ML IV PRN (08:15)
[2017-12-24] MEDS ORDERED: METOPROLOL TARTRATE 25 MG TAB PO PRN (08:15)
[2017-12-24] MEDS: SODIUM CHLORID 0.9% 500 ML INJ 500 ML IV SCH (08:15)
[2017-12-24] MEDS ORDERED: HEPARIN SODIUM - IV 10,000 UNITS/10 ML VIAL ONE ×2 (09:31→10:19)
[2017-12-24] MEDS ORDERED: HEPARIN-D5W 25,000 U/250 ML 250 ML ONE (10:18)
[2017-12-24] MEDS ORDERED: PROTAMINE SULFATE 50 MG/5 ML VIAL ONE (10:19)
[2017-12-24] MEDS ORDERED: LEVOFLOXACIN 500 MG PREMIX INJ 100 ML IV ONE (10:59)
[2017-12-24] MEDS ORDERED: GLYCOPYRROLATE 1 MG/5 ML SYRINGE IV PUSH ONE (12:00)
[2017-12-24] MEDS ORDERED: LABETALOL HCL 100 MG/20 ML VIAL IV ONE (12:00)
[2017-12-24] MEDS ORDERED: DEXAMETHASONE SOD PHOS 4 MG/ML VIAL IV ONE (12:00)
[2017-12-24] MEDS ORDERED: LIDOCAINE HCL 1% PF 5 ML SYRINGE OTHER ONE (12:00)
[2017-12-24] MEDS ORDERED: PROPOFOL 200 MG/20 ML AMP IV ONE (12:00)
[2017-12-24] MEDS ORDERED: ROCURONIUM INJ 50 MG/5 ML SYRINGE IV PUSH ONE (12:00)
[2017-12-24] MEDS ORDERED: ONDANSETRON HCL 4 MG/2 ML VIAL IV ONE (12:00)
[2017-12-24] MEDS ORDERED: NEOSTIGMINE 5 MG/5 ML SYRINGE IV PUSH ONE (12:00)
--- NOTE | 2017-12-24 12:27 | PD.CARD ---
Atrial Fibrillation Ablation PROCEDURE DATE: Dec 24, 2017 PROCEDURES PERFORMED: 1. Electrophysiology study on Isuprel infusion 2. CS cannulation 3. 3-D mapping 4. Transseptal approach 5. Right and left heart catheterization 6. Intracardiac echo 7. Radiofrequency ablation of atrial fibrillation 8. Pulmonary vein isolation 9. Posterior wall ablation 10. Mitral line creation 11. Anterior and posterior ablation INDICATIONS FOR THE PROCEDURE Mr. Fernandez is a 67-year-old male with atrial fibrillation, symptomatic, previous ablation, referred for electrophysiology study and ablation. The patient is symptomatic and on anticoagulation. The risks, the nature and the benefits of the procedure were clearly stated to him. The risks include pneumothorax, cardiac perforation, stroke, need for open heart surgery and even . The patient understood and agreed to proceed. DESCRIPTION OF THE PROCEDURE IN DETAIL After written informed consent was obtained prior to esophageal echocardiogram, the patient was kept on the table where he was prepped and draped in the usual sterile fashion. Conscious sedation was initiated and maintained throughout the procedure by the anesthesiologist. Once sedation was verified, the right and left inguinal areas were anesthetized with 2% Xylocaine. Using modified Seldinger technique, the left femoral vein was cannulated on three occasions, three guidewires were advanced. Over the wire a 6, 7 and a 10-Anguillan Hemaquet were advanced. Then the left femoral artery was cannulated on one occasion, one guidewire was advanced. Over the wire a 4-Anguillan Hemaquet was advanced. Then the right femoral vein was cannulated on one occasion, one guidewire was advanced. Over the wire a 8-Anguillan Hemaquet was advanced. Then under fluoroscopic guidance through the 6 and 7-Anguillan Hemaquet, two 5-Anguillan Jerry curved quadripolar electrophysiology catheters were advanced and placed around the His as well as coronary sinus. Basic interval was measured. The patient was in sinus rhythm. Through the 10-Anguillan Hemaquet, a Cordis Clinton AcuNav intracardiac echo catheter was advanced and placed at the right atrium. Multiple view was obtained. There was no pericardial effusion, pulmonary vein was seen, atrial septal was visualized. Then the 8-Anguillan Hemaquet in the right femoral vein was exchanged for Agilis transseptal sheath that was placed all the way to the superior vena cava. Through the sheath a Palma needle was advanced, then the sheath, the dilator and the needle were progressed until foci engaged. Once engaged, the needle was advanced. RF was delivered for 2 seconds. I was able to cross into the left atrium. Once the needle crossed, the dilator was advanced. Once the dilator crossed, the sheath was advanced. Once the sheath crossed, the dilator and the needle were removed. At this point I did flood the system and fluid movement was seen in the left atrium the indicates the sheath is in good position. The patient already received 10,000 units of heparin. The goal is to keep an ACT around 350 during ablation. Then through the sheath a [place] 20 pulse circumferential catheter was advanced. Using [employer]map[employer] endocardial solution mapping system, a two-dimensional configuration of the left atrium was obtained. Points were taken at the left superior and inferior veins, right superior and inferior veins, mitral valve, and appendages. Then through the sheath a [employer]. Keenan TactiCath 65cm 3.5mm irrigated tipped mapping and radiofrequency ablation catheter was advanced. Esophageal probe was placed temperature monitoring during ablation. When it increased to 0.5 degrees Celsius above baseline, I moved to a different area of the atrium. First I did isolate the left superior and inferior vein. I did make a big [place] around the veins. Posterior was ablated. Then a new mitral line was created. Then the right superior and inferior veins were isolated. I did remap the atrium. The circumferential catheter again into the vein. There was no signal into the vein, pacing from the vein showed no conduction to the atrium. Isuprel infusion was initiated at 20 mcg for over [id number] minutes. No tachyarrhythmia was induced, post Isuprel no tachyarrhythmia was induced. At that point the procedure was complete. All catheters were removed, atrial septal sheath was exchanged for 9-Anguillan Hemaquet, intracardiac echo showed no pericardial effusion. There is still good flow in the pulmonary vein. The patient is going to be transferred to the recovery room. No incident report. The patient tolerated the procedure. Blood loss was minimal. FINDINGS 1. Electrocardiogram: At baseline the patient was in atrial fibrillation, post procedure the patient was in sinus rhythm. 2. Basic interval: Base cycle length was around 890 ms. AH at 86 and HV at 48 milliseconds. 3. Tachyarrhythmia: Atrial fibrillation was mapped and ablated. The ablation was successful. CONCLUSION Successful electrophysiology study, mapping, radiofrequency ablation of atrial fibrillation, pulmonary vein isolation, posterior ablation, mitral line creation.. COMMENTS AND RECOMMENDATIONS The patient is going to be transferred to the telemetry unit. Will be observed and when stable can be discharged home. Theodore Mock MD Dec 24, 2017 12:27
[2017-12-24] MEDS ORDERED: SODIUM CHLOR 0.9% 250 ML INJ 250 ML IV PRN (12:30)
[2017-12-24] MEDS ORDERED: METOCLOPRAMIDE HCL 10 MG/2 ML VIAL IV PUSH PRN (12:30)
[2017-12-24] MEDS ORDERED: ZOLPIDEM TARTRATE 5 MG TAB PO PRN (12:30)
[2017-12-24] MEDS ORDERED: LORazepam 2 MG/ML VIAL IV PUSH PRN (12:30)
[2017-12-24] MEDS ORDERED: ATROPINE SULFATE 1 MG/ML VIAL IV PUSH PRN (12:30)
[2017-12-24] MEDS ORDERED: LIDOCAINE HCL 1% 50 ML VIAL INFIL PRN (12:30)
[2017-12-24] MEDS ORDERED: ONDANSETRON HCL 4 MG/2 ML VIAL IV PUSH PRN (12:30)
--- NOTE | 2017-12-24 12:48 | CATHPROC ---
Patient Name: ERIC ORTA Study #: [id number] Initial MD: Theodore Mock Date of : 1950 Study Date: 12/24/2017 Cardiac Catheterization Report 12/24/2017 12:48:18 PM Financial #: [id number] 1 of 10 Patient Name: ERIC ORTA Study #: [id number] Initial MD: Theodore Mock Date of : 1950 Study Date: 12/24/2017 Entire Case Report Patient Information Patient Name ERIC ROTA Date of 1950 Age 67 years Financial # [id number] Gender M AlternateID Lab Number 2 Room Number DC07 Height (in) 66.0 Height (cm) 167.6 BSA 1.96 Weight (lbs) 189.2 Weight (kg) 86.0 Patient Address/Phone Number Home Address [facility] Home Phone Number [address] [facility] [place] [address] Study Information Study Number Admission Scheduled Start Study Start [id number] Dec 24 2017 6:58AM 12/24/2017 Dec 24 2017 9:31AM [place] [facility] Electrophysiology Study Admit Source Facility Department Other [facility] - Freight Car Inspector Physician and Clinical Staff Initial Theodore Vigil Logistics Lead [place], Rosa,LEGAL RECORDS CLERK TECH2 Logistics Lead Natan, Nikkie,LEGAL RECORDS CLERK Other Anesthesia, CONSTRUCTION LINEMAN Recorder Shane AMAYA, Julius Recorder Mahi Franklin RN Scrub Indio Cisse,RT(R) Procedures Performed Procedure Location (Site) Vessel Name Ablation Procedure ICE CATHETER INSERT RA Atruim RF Ablation LT. ATRIUM LT. ATRIUM 12/24/2017 12:48:18 PM Financial #: [id number] 2 of 10 Patient Name: ERIC ORTA Study #: [id number] Initial MD: Theodore Mock Date of : 1950 Study Date: 12/24/2017 Equipment Time Patient Service Representative Description Size Mfg Part Number Used/Scraped NEEDLE, TRANSSEPTAL NR 98 [id number] 09:34 [facility] Used C1 *[id number] [employer]/ EP [id number] 09:34 KIT, TRANSDUCER / AFIB Used PACER *[id number]- CATHETER, TACTICATH ABLAT BUNDLE 09:34 [facility] Used 65 BUNDLE *[id number]- BUNDLE [id number] CATHETER, FR7 OPTIMA SPIRAL 09:34 [facility] FR7 *[id number]- Used BUNDLE BUNDLE [id number] 09:34 [facility] CATHETER, JSN, QUAD BUNDLE FR 5 *[id number]- Used BUNDLE [id number] 09:34 [facility] CATHETER, JSN, QUAD BUNDLE FR 5 *[id number]- Used BUNDLE [id number] SET, COOL POINT TUBING 09:34 [facility] *[id number]- Used BUNDLE BUNDLE SHEATH, FR8.5 STEERABLE SM 09:34 [facility] 71CM [id number] Used 71CM BUNDLE COVER, TRANSDUCER CABLE 612-113 09:34 [employer] Used ACUNAV *[id number] 09:34 CORDIS/PACER SHEATH, FR9 MASOUD 11CM FR 9 [id number] Used [id number] 09:34 [employer] PACK, CCL CUSTOM * Used *[id number] 09:34 [employer] PACER BERNARDO, LIMB * 2530 *[id number] Used [id number] 09:34 [employer] MEDICAL SHEATH, FR4.5 PRELUDE 11CM FR 4.5 Used 035ACT [id number] 09:34 NAMIC TUBING, HIGH PRESSURE 48" 48" Used *[id number] 09:34 NAMIC TUBING, HIGH PRESSURE 48" 48" Used *[id number] 09:34 [employer] BL[employer]ET,WARM AIR CCL * Used *[id number] 09:34 [facility] MEDICAL ELECTRODE KIT, TREMAINE X SURFACE * Used *[id number] 025613 09:34 [facility] MEDICAL SHEATH, EPS, FR6 FAST CATH FR 6 Used *[id number] 09:34 [facility] MEDICAL SHEATH, EPS, FR7 FAST CATH FR 7 [id number] Used [id number] 09:34 [facility] [employer] SHEATH, EPS, FR8 FAST CATH FR 8 Used *[id number] CATHETER, ACUNAV FR10 ICE [id number] 11:11 CYNTHIA FR 10 Used (CYNTHIA) *[id number] [employer] 11:13 SHEATH, FR10 TURUMO FR 10 [id number] Used COMPANY [employer] 10:41 SHEATH, FR10 TURUMO FR 10 [id number] Used COMPANY [facility] PAD, ELECTROSURGICAL 09:34 * [id number] *[id number] Used SURGICAL GROUNDING (BLUE) 12/24/2017 12:48:18 PM Financial #: [id number] Patient Name: ERIC ORTA Study #: [id number] Initial MD: Theodore Mock Date of : 1950 Study Date: 12/24/2017 Insurance Information Insurance Payor Medicare Third Constitution Party Third Constitution Party Number MEDICARE A B MCRAB History: Allergies Allergy Reaction No Known Allergies NKDA History: Risk Factors Hypertension Dyslipidemia Previous CT Previous Heart Failure Yes Yes Yes Yes Prior PCI Yes Chronic Lung Disease Yes Labs Hgb (g/dl) Hct (%) RBC (MIL/MM3) WBC (l/cumm) Platelets (thousands) 11.60-17.00 35.00-51.00 4.00-5.90 4.00-11.00 150.00-450.00 13.7 41.1 4.4 10 344 Glucose (mg/dl) BUN (mg/dl) Creatinine (mg/dl) BUN:Creatinine (1:x) 74.00-106.00 7.00-18.00 0.50-1.30 10.00-20.00 110 21 0.8 26.3 Na (meq/l) K (meq/l) Cl (meq/l) CO2 (mmol/L) Ca (mg/dl) 136.00-145.00 3.50-5.10 98.00-107.00 21.00-32.00 8.50-10.10 141 4.1 107 29.2 8.9 PT (sec) PTT (sec) INR (PTT:PT) 9.80-11.60 24.30-30.10 0.90-1.10 10.5 27.3 1 Medication Medication Total Dose (Bolus/Oral) Medication Total Dosage/Unit 1% XYLOCAINE 40 mL HEPARIN 98190 units 12/24/2017 12:48:18 PM Financial #: [id number] Patient Name: ERIC ORTA Study #: [id number] Initial MD: Theodore Mock Date of : 1950 Study Date: 12/24/2017 Medications (Bolus/Oral) Medication Time Given Dosage/Unit Administered By Reason 1% XYLOCAINE 12/24/2017 11:03:00 AM 20 mL Theodore Mock 20 mL 1% XYLOCAINE given in lab by Theodore Mock in Left Groin via Subcutaneous. 1% XYLOCAINE 12/24/2017 11:06:39 AM 20 mL Theodore Mock 20 mL 1% XYLOCAINE given in lab by Theodore Mock in Right Groin via Subcutaneous. HEPARIN 12/24/2017 11:16:46 AM 88690 units Anesthesia, CONSTRUCTION LINEMAN As per physicians v erbal order 91437 units HEPARIN given in lab by Anesthesia, CONSTRUCTION LINEMAN via Peripheral IV. Ordered by Theodore Mock. Chika son: As per physicians verbal order. HEPARIN 12/24/2017 11:32:48 AM 2000 units Anesthesia, CONSTRUCTION LINEMAN 2000 units HEPARIN given in lab by Anesthesia, CONSTRUCTION LINEMAN via Peripheral IV. Ordered by Theodore Mock. HEPARIN 12/24/2017 11:53:20 AM 2000 units Anesthesia, CONSTRUCTION LINEMAN 2000 units HEPARIN given in lab by Anesthesia, CONSTRUCTION LINEMAN via Peripheral IV. Ordered by Theodore Mock. Medication (Drip) Medication Time Given Dosage/Unit Concentration/Unit Diluent (ml) Solution ISUPREL 12/24/2017 11:57:36 AM 20 mcg/min 1 mg 250 NaCl .9 20 mcg/min ISUPREL given in lab by Anesthesia, CONSTRUCTION LINEMAN via Peripheral IV. Pump/Drip Flow = 300 ml/hr usi ng NaCl .9 with a concentration of 1 mg in 250 ml. Ordered by Theodore Mock. ISUPREL 12/24/2017 12:07:32 PM 20 mcg/min 1 mg 250 NaCl .9 20 mcg/min ISUPREL given in lab by Anesthesia, CONSTRUCTION LINEMAN via Peripheral IV. Pump/Drip Flow = 300 ml/hr usi ng NaCl .9 with a concentration of 1 mg in 250 ml. Ordered by Theodore Mock. Discontinued at 12/24/2017 12:07. LEVAQUIN 12/24/2017 11:00:01 AM 100 mL/hr 500 100 NaCl .9 100 mL/hr LEVAQUIN given in lab by Anesthesia, CONSTRUCTION LINEMAN via Peripheral IV. Pump/Drip Flow = 0 ml/hr using NaCl .9 with a concentration of 500 in 100 ml. Ordered by Theodore Mock. Reason: As per physicians verbal order. Initial Case Assessment Cardiovascular HR Chest Pain 64 0 Edema Present Skin color Skin None Normal Warm Dry Neurological State Oriented to time-place- Alert Moves all extremities person Respiration - General Respiration Rate SpO2 (%) (B/min) 15 98 12/24/2017 12:48:18 PM Financial #: [id number] 5 of 10 Patient Name: ERIC ORTA Study #: [id number] Initial MD: Theodore Mock Date of : 1950 Study Date: 12/24/2017 Initial Case Assessment Cardiovascular HR Rhythm NIBP Chest Pain 71 sr 140/76 0 Edema Present Skin color Skin None Normal Warm Dry Circulatory - Right Pulses Dorsalis Pedis 1 Scale (0,1,2,3,4,d) Circulatory - Left Pulses Dorsalis Pedis 1 Scale (0,1,2,3,4,d) Circulatory - Lower Extremities Color Lower Right Color Lower Left Normal Normal Neurological State Oriented to time-place- Alert Moves all extremities person Respiration - General Respiration Rate SpO2 (%) (B/min) 20 98 12/24/2017 12:48:18 PM Financial #: [id number] 6 of 10 Patient Name: ERIC ORTA Study #: [id number] Initial MD: Theodore Mock Date of : 1950 Study Date: 12/24/2017 Final Case Assessment Cardiovascular HR Rhythm NIBP Chest Pain 84 sr 202/98 0 Edema Present Skin color Skin None Normal Warm Dry Circulatory - Right Pulses Dorsalis Pedis 1 Scale (0,1,2,3,4,d) Circulatory - Left Pulses Dorsalis Pedis 1 Scale (0,1,2,3,4,d) Circulatory - Lower Extremities Color Lower Right Color Lower Left Normal Normal Neurological State Lethargic Moves all extremities Respiration - General Respiration Rate SpO2 (%) O2 (lpm) (B/min) 16 100 4 Chronological Log Time Study Chronological Log 9:52:02 Patient arrived via Bed. 9:52:03 Patient Name, D.O.B, / Armband Verified By R.N. 9:52:03 Consent signed by the physician and the patient and verified by the Freight Car Inspector staff. 9:52:04 Pre-op and post- op instructions given; patient acknowledges understanding of instructions. 9:52:14 Verbal Stimulation=2 Physical Stimulation=2 Airway=2 Respiration=2 TOTAL=8. (0=absent, 1=li mited, 2=present) 9:53:00 Patient has been NPO for More than 6Hrs. 9:53:28 Patient Warmer Placed on the Table. 9:53:34 Disposable Defibrillator Pads Placed On Patient. 9:53:38 Suzette Prominences Protected 12/24/2017 12:48:18 PM Financial #: [id number] Patient Name: ERIC ORTA Study #: [id number] Initial MD: Theodore Mock Date of : 1950 Study Date: 12/24/2017 9:55:15 A # 20 IV was noted in the Antecubital (left). Grade = 0 0.9ns kvo 9:55:37 A # 20 IV was noted in the Antecubital (right). Grade = 0 0.9ns kvo 9:55:46 History and physical on the chart. 10:09:56 Table restraints applied according to hospital policy 10:15:20 Anesthesia at bedside. Assumes care of patient. 10:22:13 Patient has been NPO for More than 6Hrs. 10:22:17 Skin Breakdown- Pt reports scabs on hands and lower arms Assessment: Initial Case, HR=64 BPM, Chest Pain=0, Edema=None, Color=Normal, Skin = Warm, Dry 10:24:02 Neurological: State=Alert, Ox3, FOFANA Respiration: Resp=15 B/min, SpO2=98 % Assessment: Initial Case, HR=71 BPM, Rhythm=sr, DVRG=475/76 mmhg, Chest Pain=0, Edema=None, Col or=Normal, Skin = Warm, Dry Right Pulses: Lamberto Ped=1 Left Pulses: Lamberto Ped=1 10:28:21 Lower Right Extremities: Color=Normal Lower Left Extremities: Color=Normal Neurological: State=Alert, Ox3, FOFANA Respiration: Resp=20 B/min, SpO2=98 % 10:37:05 Anesthesia present for intubation. 14 fr gu inserted w/o difficulty by CC. Clear yellow urine obtained. 10:46:07 Bilateral groins prepped with 2% chlorhexidine, and draped after a 3 minute waiting time. 10:55:16 MD paged 10:55:40 MD responded Time Out. Correct patient, procedure, procedure equipment, site and side verified with physicia n present. Time 11:00:00 concurred by MD, individual staff and CONSTRUCTION LINEMAN. 100 mL/hr LEVAQUIN given in lab by Anesthesia, CONSTRUCTION LINEMAN via Peripheral IV. Pump/Drip Flow = 0 ml/hr using NaCl .9 with 11:00:01 a concentration of 500 in 100 ml. Ordered by Theodore Mock. Reason: As per physicians verbal or joelle. Time Out #2 - Consents verified, patient in correct position, all results are labled and displa yed, safety precautions 11:00:29 taken, antibiotics administered. Time out concurred by MD, individual staff and CONSTRUCTION LINEMAN in procedu re 11:00:45 Case Start 11:00:50 FRANC in progress. 11:02:10 Franc complete. 11:03:00 20 mL 1% XYLOCAINE given in lab by Theodore Mock in Left Groin via Subcutaneous. 11:03:14 Vascular access was obtained in the Fem Vein (left). 11:03:20 Vascular access was obtained in the Fem Vein (left). 11:03:28 Vascular access was obtained in the Fem Vein (left). 11:03:32 Vascular access was obtained in the Fem Art (left). A SHEATH, FR4.5 PRELUDE 11CM FR 4.5 was advanced into the Fem Art (left) using the Percutaneous technique. 11:04:02 0.9ns pressure bag connected. 11:04:39 A SHEATH, EPS, FR6 FAST CATH FR 6 was advanced into the Fem Vein (left) using the Modified Seldinger technique. 11:04:47 A SHEATH, EPS, FR7 FAST CATH FR 7 was advanced into the Fem Vein (left) using the Modified Seldinger technique. 11:04:58 A SHEATH, EPS, FR8 FAST CATH FR 8 was advanced into the Fem Vein (left) using the Modified Seldinger technique. 11:06:21 Reference ECG taken 11:06:39 20 mL 1% XYLOCAINE given in lab by Theodore Mock in Right Groin via Subcutaneous. 12/24/2017 12:48:18 PM Financial #: [id number] Patient Name: ERIC ORTA Study #: [id number] Initial MD: Theodore Mock Date of : 1950 Study Date: 12/24/2017 11:07:56 Vascular access was obtained in the Fem Vein (right). 11:08:00 A SHEATH, FR10 TURUMO FR 10 was advanced into the Fem Vein (right) using the Modified Seldi nger technique. A CATHETER, JSN, QUAD BUNDLE FR 5 was advanced vis Fem Vein (left) and placed in the CS. Placem ent was visually 11:10:28 confirmed under fluoroscopy. A CATHETER, JSN, QUAD BUNDLE FR 5 was advanced vis Fem Vein (left) and placed in the HIS. Place ment was 11:10:46 visually confirmed under fluoroscopy. 11:12:45 CATHETER, ACUNAV FR10 ICE (Kwicr) FR 10 Was Postioned. A SHEATH, FR8.5 STEERABLE SM 71CM BUNDLE 71CM was exchanged in the Fem Vein (right). This was n ecessary in 11:15:11 order for catheter support. 11:15:21 [place] [address] units HEPARIN given in lab by Anesthesia, CONSTRUCTION LINEMAN via Peripheral IV. Ordered by Iris Mock Reason: As per 11:16:46 physicians verbal order. 11:17:17 A eps was advanced to the right atrium and passed through the septal wall to the left atriu m. 11:17:19 [place] out A CATHETER, FR7 OPTIMA SPIRAL BUNDLE FR7 was advanced vis Fem Vein (right) and placed in the LA . Placement 11:17:59 was visually confirmed under fluoroscopy. Mapping in progress. 11:23:00 Activated Clotting Time Drawn 11:27:57 Mapping complete. Catheter was removed A CATHETER, TACTICATH ABLAT 65 BUNDLE was advanced vis Fem Vein (right) and placed in the LA. P lacement was 11:28:03 visually confirmed under fluoroscopy. 11:29:00 RF Ablation of the LT. ATRIUM with a CATHETER, TACTICATH ABLAT 65 BUNDLE. 11:29:24 ACT (Normal Range 90-180) = 315 11:32:48 2000 units HEPARIN given in lab by Anesthesia, CONSTRUCTION LINEMAN via Peripheral IV. Ordered by Dayton Mock. 11:39:00 Activated Clotting Time Drawn 11:45:43 ACT (Normal Range 90-180) = 219 REDRAWN 11:46:05 Activated Clotting Time Drawn 11:52:06 ACT (Normal Range 90-180) = 322 11:53:20 2000 units HEPARIN given in lab by Anesthesia, CONSTRUCTION LINEMAN via Peripheral IV. Ordered by Dayton Mock. 11:55:02 Ablation Catheter was removed 20 mcg/min ISUPREL given in lab by Anesthesia, CONSTRUCTION LINEMAN via Peripheral IV. Pump/Drip Flow = 300 ml/ hr using NaCl .9 11:57:36 with a concentration of 1 mg in 250 ml. Ordered by Theodore Mock. 12:02:42 Activated Clotting Time Drawn 12:06:56 ACT (Normal Range 90-180) = 313 20 mcg/min ISUPREL given in lab by Anesthesia, CONSTRUCTION LINEMAN via Peripheral IV. Pump/Drip Flow = 300 ml/ hr using NaCl .9 12:07:32 with a concentration of 1 mg in 250 ml. Ordered by Theodore Mock. Discontinued at 12/24/2017 12: 07. 12:09:04 Catheter(s) removed without difficulty A SHEATH, FR10 TURUMO FR 10 was exchanged in the Fem Vein (right). This was necessary in order to minimize site 12:10:47 leakage. 12:22:23 Activated Clotting Time Drawn 12:24:43 ACT (Normal Range 90-180) = 161 12:25:26 10 fr RFV Sheath removed; pressure applied to access site by DB 12:25:47 4 fr LFA Sheath removed; pressure applied to access site by RW 12:27:04 Ablation procedure performed: AFIB. 12/24/2017 12:48:18 PM Financial #: [id number] Patient Name: ERIC ORTA Study #: [id number] Initial MD: Theodore Mock Date of : 1950 Study Date: 12/24/2017 12:27:16 EP Procedure was performed. 12:30:17 PACU called. Spoke to Ria. 12:30:45 Bedside Report will be given. 12:30:48 Defibrillator and ground pads removed. Skin intact. 12:31:05 Left groin venous sheaths removed; pressure applied to access site by RW. 12:40:05 Sterile dressing applied to right groin site 12:41:10 Sterile dressing applied to left groin site. Groins wnl. 12:43:30 Pt extubated to 4L nc. Will be transported to PACU w CONSTRUCTION LINEMAN, O2. 12:43:51 Case End 12:43:54 No case complications noted. 12:43:55 Cine recording checked. Assessment: Final Case, HR=84 BPM, Rhythm=sr, ITDU=053/98 mmhg, Chest Pain=0, Edema=None, [place] r=Normal, Skin = Warm, Dry Right Pulses: Lamberto Ped=1 Left Pulses: Lamberto Ped=1 12:47:33 Lower Right Extremities: Color=Normal Lower Left Extremities: Color=Normal Neurological: State=Lethargic, FOFANA Respiration: Resp=16 B/min, DrP7=969 %, O2=4 lpm 12:50:10 [facility] Study - Contrast Media Used In Study Contrast Total Opened (mL) Total Used (mL) Total Wasted (mL) Unspecified 0 0 0 End Study - Maximum Contrast Load Max Contrast Load (mL) 537.5 End Study - Radiation Exposure Fluoro Time (minutes) 1.4 End Study - Patient Disposition Complications Transferred To Interventional Outcome No Telemetry Bed successful 12/24/2017 12:48:18 PM Financial #: [id number]
[2017-12-24] MEDS ORDERED: BACITRACIN OINT 0.9 GM PKT TOP ONE (13:00)
[2017-12-24] MEDS ORDERED: LISINOPRIL 10 MG TAB PO SCH (14:00)
[2017-12-24] MEDS ORDERED: oxyCODONE/ACETAMINOPHEN 5 MG/325 MG TAB PO PRN ×2 (14:00)
[2017-12-24] MEDS ORDERED: DO NOT ADM ANY ANTICOAGULANT DRUGS PRN (14:30)
[2017-12-24] MEDS ORDERED: DULAGLUTIDE 0.75 MG SQ SCH (15:00)
[2017-12-24] MEDS: metFORMIN HCL 500 MG TAB PO SCH (16:21)
[2017-12-24] MEDS: RIVAROXABAN 20 MG TAB PO SCH (17:13)
[2017-12-24] MEDS ORDERED: PILL SPLITTER OTHER PRN (18:00)
[2017-12-24] MEDS ORDERED: ATORVASTATIN 20 MG TAB PO SCH (21:00)
[2017-12-25] VITALS (12 sets, daily range): BP systolic 106–124; BP diastolic 60–75; PULSE 76–84; RESP 17–19; TEMP 98.2–98.5; O2SAT 98–99
[2017-12-25] MEDS: SODIUM CHLORID 0.9% 500 ML INJ 500 ML IV SCH (00:55)
[2017-12-25 06:44] LABS: INTERNATIONAL NORMALIZED RATIO 1.3 RATIO; PROTHROMBIN TIME - PATIENT 13.4 SEC (9.8-11.6)
[2017-12-25] MEDS: metFORMIN HCL 500 MG TAB PO SCH (08:03)
[2017-12-25] MEDS: RIVAROXABAN 20 MG TAB PO SCH (08:04)
[2017-12-25] MEDS ORDERED: LISINOPRIL 10 MG TAB PO SCH (09:00)
[2017-12-25] MEDS ORDERED: FUROSEMIDE 40 MG TAB PO SCH (09:00)
--- NOTE | 2017-12-25 09:23 | HHI.PR ---
Subjective Remarks Feeling better Objective Vital Signs Date Time Temp Pulse Resp B/P (MAP) Pulse Ox O2 Delivery O2 Flow Rate FiO2 12/25/17 07:30 98.5 79 19 124/75 (91) 98 12/25/17 06:00 76 12/25/17 05:00 76 12/25/17 04:00 77 12/25/17 03:00 79 12/25/17 03:00 98.2 76 17 106/60 (75) 99 12/25/17 02:05 77 12/25/17 01:00 80 12/25/17 00:00 80 12/24/17 23:00 83 12/24/17 23:00 98.1 86 18 122/79 (93) 97 12/24/17 22:53 17 12/24/17 21:00 86 12/24/17 20:00 92 12/24/17 19:00 97.8 89 18 127/70 (89) 95 12/24/17 19:00 91 12/24/17 18:00 89 12/24/17 17:00 90 12/24/17 15:00 98.0 79 18 129/80 (96) 95 12/24/17 15:00 84 12/24/17 14:29 97.9 78 18 120/89 (99) 98 12/24/17 14:00 97.0 75 16 134/68 (90) 98 Nasal Cannula 3 12/24/17 14:00 78 12/24/17 13:45 74 16 137/71 (93) 98 Nasal Cannula 3 12/24/17 13:30 74 17 136/69 (91) 98 Nasal Cannula 3 12/24/17 13:15 74 15 136/77 (96) 98 Nasal Cannula 3 12/24/17 13:00 97.2 73 15 135/78 (97) 96 Nasal Cannula 3 I/O 12/24/17 12/24/17 12/24/17 12/25/17 12/25/17 12/25/17 07:00 15:00 23:00 07:00 15:00 23:00 Intake Total 50 ml 720 ml 720 ml Output Total 250 ml 400 ml 500 ml Balance -200 ml 320 ml 220 ml Intake Oral 720 ml 720 ml IV Total 50 ml Output Urine Total 250 ml 400 ml 500 ml # Bowel Movements 0 Result Diagram: 12/24/1772118 0722 Imaging Alert, fully oriented Lungs: ventilated Heart: S1, S2 regular, no gallop Abdomen: soft, no mass Ext: no edema Laboratory Tests Test 12/24/17 07:22 12/25/17 05:53 Red Blood Count 4.40 MIL/MM3 (4.50-5.90) Blood Urea Nitrogen 21 MG/DL (7-18) Random Glucose 110 MG/DL (74-106) Prothrombin Time 13.4 SEC (9.8-11.6) Activated Partial Thromboplast Time 31.5 SEC (24.3-30.1) Current Medications Medications (Trade) Dose Ordered Sig/Nialm Route Start Time Stop Time Status Last Admin Lactated Ringer's 1,000 ml @ 30 mls/hr Q24H PRN IV 12/24/17 08:15 12/27/17 08:14 Sodium Chloride 500 ml @ 30 mls/hr [id number] PRN IV 12/24/17 08:15 12/27/17 08:14 (Lopressor) 25 mg BOTTOMER OPERATOR PRN PO 12/24/17 08:15 12/27/17 08:14 (Betadine 5% Antisepsis Kit) 1 applic BOTTOMER OPERATOR PRN EACH NARE 12/24/17 08:15 12/27/17 08:14 (Chlorhexidine 2% Cloth) 3 pack BOTTOMER OPERATOR PRN TOPICAL 12/24/17 08:15 12/27/17 08:14 (NovoLIN R INJ) See Protocol Table ... BOTTOMER OPERATOR PRN SQ 12/24/17 08:15 12/27/17 08:14 Sodium Chloride 500 ml @ 30 mls/hr [id number] IV 12/24/17 08:15 (Ativan) 1 mg BOTTOMER OPERATOR SL 12/24/17 08:15 12/27/17 08:14 (Percocet 5-325 Mg) 1 tab Q4H PRN PO 12/24/17 14:00 12/24/17 20:48 (Percocet 5-325 Mg) 2 tab Q4H PRN PO 12/24/17 14:00 (Ativan Inj) 0.5 mg UNSCH PRN IV PUSH 12/24/17 12:30 12/25/17 12:29 (Atropine Inj) 0.5 mg UNSCH PRN IV PUSH 12/24/17 12:30 Sodium Chloride 250 ml @ 500 mls/hr ONCE PRN IV 12/24/17 12:30 12/25/17 12:29 (Reglan Inj) 10 mg Q4H PRN IV PUSH 12/24/17 12:30 (Zofran Inj) 4 mg Q4H PRN IV PUSH 12/24/17 12:30 (Xylocaine 1% Inj (50 ml)) 10 ml UNSCH PRN INFIL 12/24/17 12:30 12/25/17 12:29 (Lipitor) 20 mg HS PO 12/24/17 21:00 12/24/17 20:49 (Lasix) 40 mg DAILY PO 12/25/17 09:00 12/25/17 08:04 (Glucophage) 1,000 mg BIDPC PO 12/24/17 18:00 (Xarelto) 20 mg DAILY PO 12/24/17 18:00 12/25/17 08:04 (Ambien) 5 mg HS PRN PO 12/24/17 12:30 Patient Own Medication PT OWN MED: DULAGLUT... Q7D SQ 12/24/17 15:00 Future Hold Miscellaneous Information ALL NURSING DEPARTME... UNSCH PRN .XX 12/24/17 14:30 12/25/17 14:29 (Prinivil) 5 mg DAILY PO 12/25/17 09:00 12/25/17 08:05 (Pill Splitter) 1 ea UNSCH PRN OTHER 12/24/17 18:00 Assessment and Plan Problem List: (1) Atrial fibrillation ICD Codes: I48.91 - Unspecified atrial fibrillation Status: Acute Plan: SP ablation Doing well Will be DH Follow up as previously scheduled (2) Palpitations ICD Codes: R00.2 - Palpitations Status: Acute Plan: No episode reported Theodore Mock MD Dec 25, 2017 09:23
--- NOTE | 2017-12-25 22:10 | EKG ---
Date Performed: 12/25/2017 Time Performed: 03:46:08 PTAGE: 67 years EKG: Sinus rhythm Normal ECG PREVIOUS TRACING : 12/24/2017 13.50 Since the prior tracing, there has been no significant gooden DOCTOR: Tricia Rogel Interpretating Date/Time 12/25/2017 22:09:37
--- NOTE | 2017-12-25 22:49 | EKG ---
Date Performed: 12/24/2017 Time Performed: 13:50:44 PTAGE: 67 years EKG: Sinus rhythm NORMAL ECG PREVIOUS TRACING : 12/24/2017 07.56 Since the prior tracing, there has been no significant gooden DOCTOR: Tricia Rogel Interpretating Date/Time 12/25/2017 22:47:23
--- NOTE | 2017-12-25 23:01 | EKG ---
Date Performed: 12/24/2017 Time Performed: 07:56:32 PTAGE: 67 years EKG: Sinus rhythm . Normal ECG PREVIOUS TRACING : 04/24/2017 06.04 Since the prior tracing, there has been no significant gooden DOCTOR: Tricia Rogel Interpretating Date/Time 12/25/2017 23:00:21
== END 2017-12-25 11:15 | disposition home or self-care (01) ==
LOC: HDOC 06:58 → HDIC 06:59 → HCIS 14:16 → HDOC 12-25 11:15
PROVIDERS: ATTEND Internal Medicine Interventional Cardiology
DX: I48.91 Unspecified atrial fibrillation (principal); I48.92 Unspecified atrial flutter; R00.2 Palpitations; I11.0 Hypertensive heart disease with heart failure; I50.30 Unspecified diastolic (congestive) heart failure; I25.10 Atherosclerotic heart disease of native coronary artery without angina pectoris; E11.9 Type 2 diabetes mellitus without complications; I70.0 Atherosclerosis of aorta; E78.5 Hyperlipidemia, unspecified; I83.93 Asymptomatic varicose veins of bilateral lower extremities; J44.9 Chronic obstructive pulmonary disease, unspecified; M19.90 Unspecified osteoarthritis, unspecified site; R91.1 Solitary pulmonary nodule; Z95.5 Presence of coronary angioplasty implant and graft; Z79.84 Long term (current) use of oral hypoglycemic drugs; Z79.01 Long term (current) use of anticoagulants
CPT/HCPCS: 80048; 85002; 85025; 85610; 85730; 86850; 86900; 86901; 93005; 93312; 93320; 93325; 93613; 93623; 93656; 93662; C1730; C1731; C1732; C1759; C1766; C2630; J1100; J1644; J1956; J2405; J2710; J2720; J3010